=== PATIENT | female | born 1955 | race Caucasian/White ===

== ENCOUNTER 2023-09-19 07:13 | Outpatient (REF) | payer OTHER, SELFPAY ==
--- NOTE | ~2023-09-19 | XR_ITS ---
EXAMINATION: XR SHOULDER, LEFT CLINICAL INFORMATION: Pain in left shoulder. COMPARISON: None available. TECHNIQUE: Two views of the left shoulder. FINDINGS: The bones are diffusely demineralized. Moderate osteoarthritic changes in the acromioclavicular joint. There is an impacted, displaced fracture of the humeral anatomical neck/head. There is possible sclerosis along the fracture line. XR/XR shoulder LT min 2V IMPRESSION: Impacted, displaced fracture of the humeral anatomical neck/head. Possible sclerosis along the fracture line. This study was presented to me October 01, 2023 for interpretation. PSA staff will provide results to referring provider at this time.
== END 2023-09-19 07:14 | disposition home or self-care (01) ==
LOC: HO.HOSX 07:13
PROVIDERS: Visit Provider Orthopaedic Surgery
DX: M25.512 Pain in left shoulder (principal)
CPT/HCPCS: 73030

== ENCOUNTER 2023-09-19 08:40 | Outpatient (AMB) | payer OTHER, SELFPAY ==
--- NOTE | 2023-09-19 08:43 | A.OFFVIS_ITS ---
Intake Visit Reasons: Left shoulder pain Intake Note: Kelley is a 67 year old female who presents to the office today for a new patient visit for left shoulder pain and weakness. The patient states that she suffered a fracture to her left proximal humerus in April of 2023 when she fell on her left arm while coming down from the top of a bunk bed. She was treated non operatively. The patient has been doing physical therapy exercises on her own. The patient reports difficulty lifting her left hand above shoulder height. She has taken ibuprofen and Tylenol which gave her mild relief. She has failed the last 3 months of conservative treatment. She was being treated by an collateral specialist in [place]. She recently moved to [place]. Allergies No Known Allergies Allergy (Verified 09/19/23 08:51) Medication List - Last Reconciled 09/19/23 by Abhishek Ayers MD atorvastatin 40 mg PO DAILY famotidine 40 mg PO BID verapamil ER 180 mg PO BID Physical Exam Const Other: Well-nourished well-developed very friendly female awake alert and oriented x3 in no acute distress Extrem Other: Bilateral upper extremity examination shows good capillary refill, no skin lesions noted, normal sensation light touch Left shoulder examination shows decreased range of motion when compared to her right shoulder, 4+ out of 5 strength with supraspinatus testing, positive impingement signs, no crepitus with range of motion, tenderness over her acromioclavicular joint Results Reviewed Results Reviewed: X-rays of the patient's left shoulder show a partially healed humeral neck fracture with no clear evidence of avascular necrosis of the humeral head, severe acromioclavicular joint narrowing, a type 2 acromion Assessment & Plan Assessment & Plan (1) Left shoulder pain: Code(s): M25.512 - Pain in left shoulder Category: Medical Plan Ms. Wharton presents with progressively worsening left shoulder pain and weakness after suffering a left proximal humerus fracture 6 months ago. The patient's symptoms may be due to early avascular necrosis of her humeral head or possible rotator cuff tearing. Thus, I will send the patient for an MRI of her left shoulder for further evaluation. I will see her back once the MRI is completed to discuss the findings and treatment options. She will continue with her range of motion exercises in the meantime. Feel free to call me at any time should questions regarding her orthopedic management arise. I spent 20 minutes in reviewing the patient's records and imaging studies, torres shultz the patient and documenting in the medical record. Orders: Orders XR shoulder LT min 2V 09/19/23 M25.512 - Pain in left shoulder MR shoulder LT wo con 09/19/23 M25.512 - Pain in left shoulder Coding Level of Care Code New Pt Level 3 (21791) Diagnoses Left shoulder pain M25.512
== END 2023-09-19 09:19 | disposition home or self-care (01) ==
PROVIDERS: Visit Provider Orthopaedic Surgery
DX: M25.512 Pain in left shoulder (principal)
CPT/HCPCS: 99204

== ENCOUNTER 2023-11-06 08:33 | Outpatient (REF) | payer OTHER, SELFPAY ==
--- NOTE | ~2023-11-06 | MR_ITS ---
EXAMINATION: MR SHOULDER WITHOUT CONTRAST, LEFT CLINICAL INFORMATION: Shoulder pain. COMPARISON: X-ray 09/19/2023 TECHNIQUE: MRI of the shoulder without contrast was performed on a high-field scanner. FINDINGS: ROTATOR CUFF: Mild supraspinatus tendinosis. No transverse tendon tear or retraction is seen. Infraspinatus, teres minor are intact. No muscle atrophy or fatty infiltration. BICEPS: Suspected mild biceps tendinosis. CORACOACROMIAL ARCH: The undersurface of the acromion is curved with no subacromial spur. Moderate acromioclavicular arthritis. LABRUM/CAPSULE: Superior labral degeneration with fraying. Small caliber posterior labrum. GLENOHUMERAL JOINT/MARROW: As seen on the x-ray, there is an impacted displaced fracture of the humeral head/neck. There is a bony edema present in this region. Mild glenohumeral joint arthritis, with areas of chondral heterogeneity and thinning. Small joint effusion. No axillary lymphadenopathy. MR/MR shoulder LT wo con IMPRESSION: 1. Impacted, displaced humeral head/neck fracture, with bony edema. 2. Mild supraspinatus tendinosis. 3. Suspected mild biceps tendinosis. 4. Superior labral degeneration with fraying. Small caliber posterior labrum. 5. Mild glenohumeral joint arthritis. Small effusion. 6. Moderate acromioclavicular arthritis.
== END 2023-11-06 08:34 | disposition home or self-care (01) ==
LOC: HO.MRI 08:33
PROVIDERS: PCP Physician Assistant Medical; Visit Provider Orthopaedic Surgery
DX: M25.512 Pain in left shoulder (principal)
CPT/HCPCS: 73221

== ENCOUNTER 2023-12-03 07:28 | Outpatient (AMB) | payer OTHER, SELFPAY ==
--- NOTE | 2023-12-03 07:31 | A.OFFVIS_ITS ---
Intake Visit Reasons: OV- MRI review LT shoulder Intake Note: Kelley is a 67 year old right hand dominant female who presents with complaints of intermittent discomfort in her left shoulder. She notices the discomfort mostly at night. She continues with her home stretching program. She also does water aerobics for exercise. Allergies No Known Allergies Allergy (Verified 09/19/23 08:51) Medication List - Last Reconciled 12/03/23 by Abhishek Ayers MD atorvastatin 40 mg PO DAILY famotidine 40 mg PO BID verapamil ER 180 mg PO BID Physical Exam Const Other: Well-nourished well-developed very friendly female awake alert and oriented x3 in no acute distress Extrem Other: Bilateral upper extremity examination shows good capillary refill, no skin lesions noted, normal sensation light touch Left shoulder examination shows forward flexion 130 degrees, external rotation to 30 degrees, internal rotation to L4, positive impingement signs, tenderness over her acromioclavicular joint, 4+ out of 5 strength with supraspinatus testing Results Reviewed Results Reviewed: MRI of the patient's left shoulder shows bony trabecular crossing the patient's proximal humerus fracture site, a type 2 acromion, severe acromioclavicular joint degenerative changes, signal change within the supraspinatus tendon most likely due to adhesive capsulitis Assessment & Plan Assessment & Plan (1) Left shoulder pain: Code(s): M25.512 - Pain in left shoulder Category: Medical Plan Ms. Wharton presents with left shoulder pain and stiffness due to impingement syndrome, acromioclavicular joint arthritis and adhesive capsulitis. I had a lengthy discussion with the patient regarding the treatment options. The patient wishes to hold off on surgery if at all possible. She will continue with her [id number] exercises. The do's and don'ts of lifting were discussed at length with the patient. She will contact me prior to her follow- up appointment in 2 months should any questions or concerns arise. Feel free to call me at any time should questions regarding her orthopedic management arise. I spent 22 minutes in reviewing the patient's records and imaging studies, seeing the patient and documenting in the medical record. Coding Level of Care Code Est Pt Level 3 (18050) Diagnoses Left shoulder pain M25.512
== END 2023-12-03 07:57 | disposition home or self-care (01) ==
PROVIDERS: PCP Physician Assistant Medical; Visit Provider Orthopaedic Surgery
DX: M75.42 Impingement syndrome of left shoulder (principal); M19.012 Primary osteoarthritis, left shoulder
CPT/HCPCS: 99213

== ENCOUNTER → 2023-12-03 07:28 | Outpatient (BNVA) | payer OTHER, SELFPAY | PROVIDERS: PCP Physician Assistant Medical; Visit Provider Orthopaedic Surgery ==

== ENCOUNTER 2024-02-03 09:14 | Outpatient (AMB) | payer OTHER, SELFPAY ==
--- NOTE | 2024-02-03 09:22 | MHC.PC.OV ---
Vital Signs 02/03/24 09:30 Height 5 ft 4.57 in Weight 133 lb BMI 22.4 BP 118/68 Blood Pressure Location Lt brachial Position Sitting Respiration 14 Pulse 70 Pulse Source Pulse Oximeter Temp 98.1 F Temp Source Oral Pulse Oximetry (%) 99 Oxygen Delivery Method Room Air Intake Visit Reasons: GLASS [employer]ANER- Est care/meds Intake Note: New patient visit Allergies No Known Allergies Allergy (Verified 02/03/24 09:22) Tobacco use date assessed: 02/03/24 Fall risk assessment: 1 Fall in past year Last assessed Fall Risk: 02/03/24 Dental Screening Dental Screen Date: 02/03/24 HPI HPI Comments History of Present Illness Details This is a 68-year-old female with a past medical history of osteoporosis, vitamin-D deficiency, cluster headaches, hyperlipidemia and hypertension presenting to [facility]. She relocated from [facility] in 06/2023 to be closer to her 2 grandchildren. Cluster headaches-seen by neurology in the past. She was treated with a nerve block, and they have been in remission for the past year. She also takes diltiazem. Colonoscopy is due to in October 2026. She had a few polyps on her last colonoscopy in 2021. Records transfer pending. Mammogram and bone density are due. Requests orders. She is on Fosamax and takes a vitamin-D supplement for vitamin-D deficiency. She had labs done in June 2022 at her last physical. Started smoking age 14, and she smoked 1 ppd until 2012. She had 1 LDCT several years ago. She is interested in continued screenings. No cough, wheezing, shortness of breath or hemoptysis. Hyperlipidemia is treated with atorvastatin 40 mg daily. No history of heart attack or stroke. Patient followed by [facility] for chronic left shoulder pain. ROS: Constitutional: No unexplained weight loss, fever, chills, fatigue or night sweats. Respiratory: No shortness of breath, cough or sputum production. Cardiovascular: No chest pain, chest pressure or chest discomfort. No palpitations or pedal edema. Gastrointestinal: No anorexia, nausea, vomiting or diarrhea. No abdominal pain or blood in stool. Neurologic: No headache, dizziness, syncope Physical exam: Constitutional: Alert, in no distress. Neck: Supple, Full range of motion. No lymphadenopathy. No palpable thyroid masses. Respiratory: Clear to auscultation. Cardiovascular: S1 S2 regular. No murmurs. Extremities: Warm and well perfused. No clubbing, cyanosis or edema. Psychiatric: Normal mood and affect [facility] Medical History (Updated 02/03/24 @ 10:17 by MARY LOU Basilio) History of tobacco use Osteoporosis Vitamin D deficiency Hyperlipidemia Essential hypertension Cluster headaches HTN (hypertension) Family History (Updated 02/03/24 @ 09:28 by Jovanna Medina [facility]) Brother Alcoholism Mother HTN (hypertension) Father HTN (hypertension) Other Substance use Social History Housing: [facility] Patient Tobacco Use Status: Former Tobacco user Cigarette Packs Per Day: 1 Years Smoked: 40 e-Cigarette/Vaping Use: Never Used Second Hand Smoke Exposure: No service: No Current occupational status: retired Cognitive needs: No Hearing needs: Yes (hearing loss) Vision needs: Yes (glasses) Questionnaire PHQ-9 Over the last 2 weeks, how often have you been bothered by any of the following problems? 1. Little interest or pleasure in doing things: not at all 2. Feeling down, depressed, or hopeless: not at all 3. Trouble falling or staying asleep, or sleeping too much: several days 4. Feeling tired or having little energy: several days 5. Poor appetite or overeating: several days 6. Feeling bad about yourself - or that you are a failure or have let yourself or your family down: not at all 7. Trouble concentrating on things, such as reading the newspaper or watching television: not at all 8. Moving or speaking so slowly that other people could have noticed. Or the opposite - being so fidgety or restless that you have been moving around a lot more than usual: not at all 9. Thoughts that you would be better off or of hurting yourself in some way: not at all Total score: 3 Depression Screening Interpretation: Negative Depression Screening Done: Yes 22272 - PHQ-9 Billing: Yes Source: Developed by Drs. Shahram Head, Candis Fabian, Kevyn Mayer and colleagues, with an educational margy from [employer]. Thrive Questionnaire Date Thrive assessed: 02/03/24 I am a: Patient What is your living situation today?: I have a steady place to live Within the past 12 months, did the food you bought not last and you didn't have the money to get more?: Never true Within the past 12 months, did you worry whether your food would run out before you got money to buy more?: Never true Do you have trouble paying for medicines?: No Do you have trouble getting transportation to medical appointments?: No Do you have trouble paying your heating and electricity bill?: No Do you have trouble taking care of your child, family member or friend?: No Do you have trouble with day-to-day activities such as bathing, preparing meals, shopping, managing finances, etc.?: No Are you currently unemployed and looking for a job?: No Are you interested in more education?: Yes Please select the resources that you would like help with: None Currently or been in a relationship where the following occur: No concerns reported THRIVE Score: 0 AUDIT C Alcohol Use Questionnaire (AUDIT-C) 1. How often do you have a drink containing alcohol?: Monthly or less 2. How many drinks containing alcohol do you have on a typical day when you are drinking?: 1 or 2 3. How often do you have six or more drinks on one occasion?: Never Total Score: 1 DWAINE-7 AMB Questionnaire DWAINE-7 Date DWAINE - 7 assessed: 02/03/24 Feeling nervous, anxious, or on edge: 1 = Several days Not being able to stop or control worryin = Several days Worrying too much about different things: 1 = Several days Trouble relaxin = Several days Being so restless that it is hard to sit still: 1 = Several days Becoming easily annoyed or irritable: 1 = Several days Feeling afraid as if something awful might happen: 1 = Several days Total DWAINE-7 score (0-4 normal; 5-9 mild; 10-14 moderate; 15-21 severe): 7 Source: Developed by Drs. Shahram Head, Candis Fabian, Kevyn Mayer and colleagues, with an educational margy from [employer]. DWAINE-7 Assessment Billing DWAINE-7 Assessment Tool: DWAINE-7 Assessment 90467 Physical exam (Primary Care) Vital Signs: Last Vital Signs Temp 98.1 F 02/03/24 09:30 Pulse 70 02/03/24 09:30 Resp 14 02/03/24 09:30 BP 118/68 02/03/24 09:30 Pulse Ox 99 02/03/24 09:30 Oxygen Delivery Method Room Air 02/03/24 09:30 BMI result Body Mass Index 22.4 Tobacco/Smoking Status: Tobacco use Status Tobacco use date assessed 02/03/24 02/03/24 09:33 Patient Tobacco Use Status Former Tobacco user 02/03/24 09:33 e-Cigarette/Vaping Use Never Used 02/03/24 09:33 PHQ-9: PHQ-9 Score PHQ-9: Total score 3 02/03/24 10:04 Depression Screening Interpretation: Negative Thrive Assessment: Date of Thrive Assessment Date Thrive assessed 02/03/24 02/03/24 09:33 Currently or been in a relationship where the following occur: No concerns reported Coding Level of Care Code New Pt Level 4 (63738) Complex EM visit Add On G2211 Diagnoses Age-related osteoporosis without current pathological fracture M81.0 Osteoporosis type: age-related Presence of current pathological fracture: without current pathological fracture Vitamin D deficiency E55.9 Hyperlipidemia E78.5 Essential hypertension I10 Cluster headaches G44.009 History of tobacco use Z87.891 Left shoulder pain M25.512 Additional Codes DWAINE-7 Assessment Billing - DWAINE-7 Assessment Tool: DWAINE-7 Assessment 75666 ([id number]) Assessment & Plan Assessment & Plan (1) Osteoporosis: Code(s): M81.0 - Age-related osteoporosis without current pathological fracture Category: Medical Qualifiers: Osteoporosis type: age-related Presence of current pathological fracture: without current pathological fracture Qualified Code(s): M81.0 - Age-related osteoporosis without current pathological fracture Plan: Reviewed calcium and vitamin-D supplementation. Avoid smoking. Weightbearing exercise encouraged. Continue Fosamax. Bone density exam ordered. (2) Vitamin D deficiency: Code(s): E55.9 - Vitamin D deficiency, unspecified Category: Medical Plan: Continue vitamin-D supplement. Order placed to repeat for physical exam. (3) Hyperlipidemia: Code(s): E78.5 - Hyperlipidemia, unspecified Category: Medical Plan: Mediterranean diet recommended. Continue atorvastatin. Check lipid profile prior to physical exam. (4) Essential hypertension: Code(s): I10 - Essential (primary) hypertension Category: Medical Plan: Controlled. Continue current dose of diltiazem. (5) Cluster headaches: Code(s): G44.009 - Cluster headache syndrome, unspecified, not intractable Category: Medical Plan: Contact the office for recurrent symptoms. She has done well since interventions with Neurology. (6) History of tobacco use: Code(s): Z87.891 - Personal history of nicotine dependence Category: Social Hx Plan: Referred for lung cancer screening. (7) Left shoulder pain: Code(s): M25.512 - Pain in left shoulder Category: Medical Plan: Continue management per [facility]. Plan Follow up for physical exam in 06/25/2024. Orders: Orders MM screening mammo BI Today Z12.31 - Encounter for screening mammogram for malignant neoplasm of breast XR DEXA axial skeleton Today M81.0 - Age-related osteoporosis without current pathological fracture, N95.9 - Unspecified menopausal and perimenopausal disorder Lipid Panel Today E55.9 - Vitamin D deficiency, unspecified, E78.5 - Hyperlipidemia, unspecified, I10 - Essential (primary) hypertension, M81.0 - Age-related osteoporosis without current pathological fracture Comprehensive Met. Panel Today E55.9 - Vitamin D deficiency, unspecified, E78.5 - Hyperlipidemia, unspecified, I10 - Essential (primary) hypertension, M81.0 - Age-related osteoporosis without current pathological fracture TSH reflex Free T4 Today E55.9 - Vitamin D deficiency, unspecified, E78.5 - Hyperlipidemia, unspecified, I10 - Essential (primary) hypertension, M81.0 - Age-related osteoporosis without current pathological fracture Complete Blood Count no Diff Today E55.9 - Vitamin D deficiency, unspecified, E78.5 - Hyperlipidemia, unspecified, I10 - Essential (primary) hypertension, M81.0 - Age-related osteoporosis without current pathological fracture Vitamin D 1,25 dihydroxy Today E55.9 - Vitamin D deficiency, unspecified, E78.5 - Hyperlipidemia, unspecified, I10 - Essential (primary) hypertension, M81.0 - Age-related osteoporosis without current pathological fracture CT lung screening Today Z87.891 - Personal history of nicotine dependence Medications: New atorvastatin 40 mg PO DAILY 90 tabs 3RF alendronate 70 mg PO QWEEK 12 tabs 3RF famotidine 40 mg PO BID 180 tabs 3RF verapamil ER 180 mg PO BID 180 tabs 3RF Patient Instructions: Please have fasting labs done at one of the [facility] lab locations the week before your physical exam in June. You will be called to schedule the mammogram and bone density exam.
[2024-02-03 09:30] VITALS: BP 118/68; PULSE 70; RESP 14; TEMP 36.7; O2SAT 99; BMI 22.4
== END 2024-02-03 10:06 | disposition home or self-care (01) ==
PROVIDERS: PCP Physician Assistant Medical; Visit Provider Physician Assistant Medical
DX: M81.0 Age-related osteoporosis without current pathological fracture (principal); E55.9 Vitamin D deficiency, unspecified; E78.5 Hyperlipidemia, unspecified; I10 Essential (primary) hypertension; G44.009 Cluster headache syndrome, unspecified, not intractable; Z87.891 Personal history of nicotine dependence; M25.512 Pain in left shoulder

== ENCOUNTER → 2024-02-03 09:14 | Outpatient (BNVA) | payer OTHER, SELFPAY | PROVIDERS: PCP Physician Assistant Medical; Visit Provider Physician Assistant Medical | DX: M81.0 Age-related osteoporosis without current pathological fracture (principal); E55.9 Vitamin D deficiency, unspecified; E78.5 Hyperlipidemia, unspecified; I10 Essential (primary) hypertension; G44.009 Cluster headache syndrome, unspecified, not intractable; M25.512 Pain in left shoulder; Z79.899 Other long term (current) drug therapy; Z87.891 Personal history of nicotine dependence | CPT/HCPCS: 96127 ==

== ENCOUNTER 2024-02-04 07:34 | Outpatient (AMB) | payer OTHER, SELFPAY ==
--- NOTE | 2024-02-04 07:45 | A.OFFVIS_ITS ---
Vital Signs 02/04/24 07:48 Height 5 ft 5 in Weight 133 lb BMI 22.1 Intake Visit Reasons: OV- LT shoulder follow up Intake Note: Kelley is a 67 year old female who presents for follow-up of her left shoulder pain and stiffness. The patient states that she suffered a fracture to her left proximal humerus in April of 2023 when she fell on her left arm while coming down from the top of a bunk bed. She was treated non operatively. The patient has been doing physical therapy exercises on her own. The patient reports minimal discomfort in her left shoulder. She does take Tylenol or ibuprofen which gave her fairly good relief. The patient states that she has difficulty taking off her bathing suit top after swimming. Otherwise she states that her left shoulder discomfort and stiffness are tolerable to her at this time. Allergies latex Allergy (Severe, Verified 02/04/24 07:49) Itching Medication List - Last Reviewed 02/04/24 by RIGOBERTO Bush alendronate 70 mg PO QWEEK atorvastatin 40 mg PO DAILY cholecalciferol (vitamin D3) . famotidine 40 mg PO BID verapamil ER 180 mg PO BID PFSH Medical History History of tobacco use Osteoporosis Vitamin D deficiency Hyperlipidemia Essential hypertension Cluster headaches HTN (hypertension) Family History Brother Alcoholism Mother HTN (hypertension) Father HTN (hypertension) Other Substance use Social History Housing: Condominium Patient Tobacco Use Status: Former Tobacco user Cigarette Packs Per Day: 1 Years Smoked: 40 e-Cigarette/Vaping Use: Never Used Second Hand Smoke Exposure: No service: No Current occupational status: retired Cognitive needs: No Hearing needs: Yes (hearing loss) Vision needs: Yes (glasses) Physical Exam Vital Signs: BMI result Body Mass Index 22.1 Const Other: Well-nourished well-developed very friendly female awake alert and oriented x3 in no acute distress Extrem Other: Left shoulder examination shows improved range of motion when compared to her last examination with forward flexion to 150 degrees, external rotation at 30 degrees, internal rotation to level L4, no crepitus with range of motion, minimal discomfort with range of motion, no instability Results Reviewed Results Reviewed: X-rays of the patient's left shoulder show bony trabecular crossing her proximal humerus fracture site, no evidence of avascular necrosis Assessment & Plan Assessment & Plan (1) Left shoulder pain: Code(s): M25.512 - Pain in left shoulder Category: Medical Plan Kelley continues to do fairly well after suffering a left proximal humerus fra cture. I had a lengthy discussion with the patient regarding the treatment options. At this point the patient's symptoms are tolerable to her. She will continue with her home stretching program. She will follow up with me on an as- needed basis should her symptoms worsen in any way. Feel free to call me at any time should questions regarding her orthopedic management arise. I spent 21 minutes in reviewing the patient's records and imaging studies, seeing the patient and documenting in the medical record. Orders: Orders XR shoulder LT min 2V 02/04/24 M25.512 - Pain in left shoulder Coding Level of Care Code Est Pt Level 3 (04560) Complex EM visit Add On G2211 Diagnoses Left shoulder pain M25.512
[2024-02-04 07:48] VITALS: BMI 22.1
== END 2024-02-04 08:02 | disposition home or self-care (01) ==
LOC: HO.HOS 07:35
PROVIDERS: PCP Physician Assistant Medical; Visit Provider Orthopaedic Surgery
DX: S42.202D Unspecified fracture of upper end of left humerus, subsequent encounter for fracture with routine healing (principal); M25.512 Pain in left shoulder
CPT/HCPCS: 99213; G2211

== ENCOUNTER 2024-02-04 13:06 | Outpatient (REF) | payer MEDICARE, SELFPAY | END 2024-02-04 13:07 | disposition home or self-care (01) | LOC: HO.HOSX 13:06 | PROVIDERS: Visit Provider Orthopaedic Surgery | DX: M25.512 Pain in left shoulder (principal) | CPT/HCPCS: 73030 ==

== ENCOUNTER 2024-03-18 10:58 | Outpatient (REF) | payer MEDICARE, SELFPAY ==
--- NOTE | ~2024-03-18 | MM_ITS ---
EXAMINATION: BONE DENSITOMETRY CLINICAL INDICATION: Age-related osteoporosis without current pathological fracture. COMPARISON: This is the patient's baseline examination. TECHNIQUE: Using a [employer] DXA System (software version: 13.1) manufactured by [employer], dual-energy x-ray absorptiometry was performed of the lumbar spine and left hip. The images are of good technical quality. Summary results are attached. FINDINGS: AP SPINE L1-L4: BMD 0.813 g/cm2, Z-score -1.2, T-score -3.1, osteoporosis. LEFT FEMUR, NECK: BMD 0.732 g/cm2, Z-score -0.5, T-score -2.2, osteopenia. LEFT FEMUR, TOTAL: BMD 0.725 g/cm2, Z-score -0.7, T-score -2.2, osteopenia. IDENTIFIED RISK FACTORS: History of adult fracture. Menopause. HISTORY OF FRACTURE: Humerus/shoulder. MEDICATIONS: Calcium supplement and/or multivitamin. Vitamin D. Bisphosphonates. MM/XR DEXA axial skeleton IMPRESSION: 1. DIAGNOSIS: Severe osteoporosis based on the lowest T-score value of -3.1 in the lumbar spine and the prior history of fracture applying World Health Organization criteria. 2. 10-YEAR FRACTURE RISK PREDICTION, FRAX: According to the guidelines, FRAX calculation should only be performed on patients in the osteopenia bone density category. Therefore, FRAX was not performed on this patient. 3. Treatment Recommendations: NOF guidelines recommend consideration for treatment in postmenopausal women and men age 50 and older presenting with the following: -A hip or vertebral (clinical or morphometric) fracture. -T-score less than or equal to -2.5 at the femoral neck or spine after appropriate evaluation to exclude secondary causes. -Low bone mass at the hip or spine and a 10-year fracture probability by FRAX of greater than or equal to 3% for hip fracture or greater than or equal to 20% for major osteoporotic fracture based on the [place] adapted WHO algorithm. 4. Other Recommendations: All treatment decisions require clinical judgment and consideration of individual patient factors, including patient preferences, comorbidities, previous drug use, risk factors not captured in the FRAX model (e.g. frailty, falls, vitamin D deficiency, increased bone turnover, interval significant decline in bone density) and possible under or overestimation of fracture risk by FRAX. Additional medical evaluation for secondary cause of low bone mineral density may be appropriate. FUTURE SCAN RECOMMENDATION: People with diagnosed cases of osteoporosis or at high risk for fracture should have regular bone mineral density tests. For patients eligible for Medicare, routine testing is allowed once every 2 years. The testing frequency can be increased to one year for patients who have rapidly progressing disease, those who are receiving or discontinuing medical therapy to restore bone mass, or have additional risk factors. Electronically signed by: René Loera MD 03/18/2024 04:48 PM [facility]
== END 2024-03-18 10:59 | disposition home or self-care (01) ==
LOC: HO.MAMMO 10:58
PROVIDERS: PCP Physician Assistant Medical; Visit Provider Physician Assistant Medical
DX: Z12.31 Encounter for screening mammogram for malignant neoplasm of breast (principal); M81.0 Age-related osteoporosis without current pathological fracture; Z78.0 Asymptomatic menopausal state
CPT/HCPCS: 77063; 77067; 77080

== ENCOUNTER → 2024-03-18 11:15 | Outpatient (BNV) | payer MEDICARE, SELFPAY | PROVIDERS: PCP Physician Assistant Medical; Visit Provider Internal Medicine | DX: Z12.31 Encounter for screening mammogram for malignant neoplasm of breast (principal) | CPT/HCPCS: 77063; 77067 ==

== ENCOUNTER 2024-08-10 08:16 | Outpatient (AMB) | payer OTHER, SELFPAY ==
--- NOTE | 2024-07-09 13:36 | MHC.PC.OV ---
Intake Visit Reasons: annual phyiscal Allergies latex Allergy (Severe, Verified 02/04/24 07:49) Itching Tobacco use date assessed: 02/03/24 Dental Screening Dental Screen Date: 02/03/24 [facility] Medical History History of tobacco use Osteoporosis Vitamin D deficiency Hyperlipidemia Essential hypertension Cluster headaches HTN (hypertension) Family History Brother Alcoholism Mother HTN (hypertension) Father HTN (hypertension) Other Substance use Social History Housing: Condominium Patient Tobacco Use Status: Former Tobacco user Cigarette Packs Per Day: 1 Years Smoked: 40 e-Cigarette/Vaping Use: Never Used Second Hand Smoke Exposure: No service: No Current occupational status: retired Cognitive needs: No Hearing needs: Yes (hearing loss) Vision needs: Yes (glasses) Questionnaire Thrive Questionnaire Date Thrive assessed: 02/03/24 DWAINE-7 AMB Questionnaire DWAINE-7 Date DWAINE - 7 assessed: 02/03/24 Source: Developed by Drs. Shahram Head, Candis Fabian, Kevyn Mayer and colleagues, with an educational margy from [employer]. Physical exam (Primary Care) Tobacco/Smoking Status: Tobacco use Status Tobacco use date assessed 02/03/24 02/03/24 09:33 Patient Tobacco Use Status Former Tobacco user 02/03/24 09:33 e-Cigarette/Vaping Use Never Used 02/03/24 09:33 Thrive Assessment: Date of Thrive Assessment Date Thrive assessed 02/03/24 02/03/24 09:33 Coding
--- NOTE | 2024-08-10 08:22 | A.OFFPC_ITS ---
Vital Signs 08/10/24 08:27 08/10/24 08:32 Height 5 ft 5 in Weight 126 lb BMI 21.0 BP 98/52 L 98/50 L Blood Pressure Location Lt brachial Rt brachial Position Sitting Sitting Pulse 81 Pulse Source Pulse Oximeter Temp 97.4 F Temp Source Temporal Artery Scan Pulse Oximetry (%) 97 Oxygen Delivery Method Room Air Intake Visit Reasons: annual phyiscal Intake Note: Kelley presents in the office today for her annual physical. Allergies latex Allergy (Severe, Verified 08/10/24 08:24) Itching Tobacco use date assessed: 08/10/24 Fall risk assessment: No Falls in past year Last assessed Fall Risk: 08/10/24 Dental Screening Dental Screen Date: 08/10/24 Did you have a dental visit in the last 12 months?: Yes Did you have a dental problem in the last 6 months where you did not have access to dental care?: No Was dental information given to patient?: Patient has dentist HPI HPI Comments History of Present Illness Details This is a 68-year-old female with a past medical history of osteoporosis, vitamin-D deficiency, cluster headaches, hyperlipidemia and hypertension presenting for a physical exam. She relocated from [facility] in 06/2023 to be closer to her 2 grandchildren. She is still on the road a lot getting things from storage units. It has been a busy past few months. Cluster headaches-seen by neurology in the past. She was treated with a nerve block, and they have been in remission for the past year. She takes diltiazem for this. Her blood pressure is soft today, but she denies symptoms of low b lood pressure. She only had coffee this morning and nothing else to eat or drink. She has a blood pressure cuff at home, and she will recheck her blood pressure and contact the office if systolic is less than 100 or diastolic is less than 55. She reports colonoscopy is due to in October 2026. She had polyps in 2021. She had a mammogram in March 2024 which showed no evidence of malignancy. Her bone density exam was consistent with her diagnosis of osteoporosis. She is on calcium, vitamin-D and alendronate. She is due for fasting blood work, and she is reminded to have this done. Started smoking age 14, and she smoked 1 ppd until 2012. She had 1 LDCT several years ago. She is interested in continued screenings. No cough, wheezing, shortness of breath or hemoptysis. I referred her for this, but she was not contacted. She is interested in having another screening, but she defers it until the fall because she will not be consistently in this area until then. Hyperlipidemia is treated with atorvastatin 40 mg daily. No history of heart attack or stroke. Patient followed by [facility] for chronic left shoulder pain. She will follow up with her pharmacy for pneumonia vaccine, shingles vaccine and tetanus immunization. Patient reports she is up-to-date with COVID-19 and influenza vaccine. ROS: Constitutional: No unexplained weight loss, fever, chills, fatigue or night sweats. Eyes: No vision changes, blurry vision, double vision, eye pain, eye redness, eye discharge. ENT: No hearing loss, sneezing, congestion, runny nose or sore throat. Respiratory: No shortness of breath, cough or sputum production. Cardiovascular: No chest pain, chest pressure or chest discomfort. No palpitations or pedal edema. Gastrointestinal: No anorexia, nausea, vomiting or diarrhea. No abdominal pain or blood in stool. Genitourinary: No dysuria, hematuria, urinary frequency. Neurologic: No headache, dizziness, syncope, unilateral weakness, ataxia, numbness or tingling in the extremities. Musculoskeletal: No joint swelling, back pain. See HPI. Hematologic/Lymphatics: No bleeding or painful lymph nodes. She notices that she does bruise more easily if she bumps her arms on something, but she has no spontaneous bruising. She takes ibuprofen for her shoulder pain. Skin: No rash or itching. Endocrine: No cold or heat intolerance. No polyuria or polydipsia. Psychiatric: No depression or anxiety. No SI/HI. Physical exam: Constitutional: Alert, in no distress. Head: Normocephalic. Eyes: Pupils are equal, round and reactive to light. Extraocular muscles intact. Ear, Nose and Throat: Canals clear. TMs normal. Normal nasal mucosa. No nasal discharge. No oral lesions. Neck: Supple, Full range of motion. No lymphadenopathy. No palpable thyroid masses. Respiratory: Clear to auscultation. Cardiovascular: S1 S2 regular. No murmurs. No carotid bruits. Gastrointestinal: Abdomen soft, non-tender, non-distended. Normal bowel sounds. No palpable masses. Neurologic: No focal neurological deficits. Symmetric patellar reflexes. Moves all extremities spontaneously. Sensation intact bilaterally. Skin: No rashes . No visible ecchymosis. Musculoskeletal: No gross deformities. Normal range of motion. Extremities: Warm and well perfused. No clubbing, cyanosis or edema. Intact upper and lower extremity peripheral pulses bilaterally. Psychiatric: Normal mood and affect [facility] Medical History (Updated 08/10/24 @ 08:39 by MARY LOU Basilio) Routine physical examination History of tobacco use Osteoporosis Vitamin D deficiency Hyperlipidemia Essential hypertension Cluster headaches HTN (hypertension) Family History Brother Alcoholism Mother HTN (hypertension) Father HTN (hypertension) Other Substance use Social History (Updated 08/10/24 @ 08:26 by Pamela Enamorado MA) Housing: Condominium Alcohol intake: current Patient Tobacco Use Status: Former Tobacco user Cigarette Packs Per Day: 1 Years Smoked: 40 e-Cigarette/Vaping Use: Never Used Second Hand Smoke Exposure: No service: No Current occupational status: retired Cognitive needs: No Hearing needs: Yes (hearing loss) Vision needs: Yes (glasses) Questionnaire PHQ-9 Over the last 2 weeks, how often have you been bothered by any of the following problems? 1. Little interest or pleasure in doing things: not at all 2. Feeling down, depressed, or hopeless: not at all 3. Trouble falling or staying asleep, or sleeping too much: several days 4. Feeling tired or having little energy: not at all 5. Poor appetite or overeating: not at all 6. Feeling bad about yourself - or that you are a failure or have let yourself or your family down: not at all 7. Trouble concentrating on things, such as reading the newspaper or watching television: not at all 8. Moving or speaking so slowly that other people could have noticed. Or the opposite - being so fidgety or restless that you have been moving around a lot more than usual: not at all 9. Thoughts that you would be better off or of hurting yourself in some way: not at all Total score: 1 Depression Screening Interpretation: Negative Depression Screening Done: Yes 51306 - PHQ-9 Billing: Patient declined-do not bill Source: Developed by Drs. Shahram Head, Candis Fabian, Kevyn Mayer and colleagues, with an educational margy from [employer]. Thrive Questionnaire Date Thrive assessed: 08/10/24 I am a: Patient What is your living situation today?: I have a steady place to live Within the past 12 months, did the food you bought not last and you didn't have the money to get more?: Never true Within the past 12 months, did you worry whether your food would run out before you got money to buy more?: Never true Do you have trouble paying for medicines?: No Do you have trouble getting transportation to medical appointments?: No Do you have trouble paying your heating and electricity bill?: No Do you have trouble taking care of your child, family member or friend?: No Do you have trouble with day-to-day activities such as bathing, preparing meals, shopping, managing finances, etc.?: No Are you currently unemployed and looking for a job?: No Are you interested in more education?: Yes Please select the resources that you would like help with: None Currently or been in a relationship where the following occur: No concerns reported THRIVE Score: 0 AUDIT C Alcohol Use Questionnaire (AUDIT-C) 1. How often do you have a drink containing alcohol?: 2-4 times a month 2. How many drinks containing alcohol do you have on a typical day when you are drinking?: 1 or 2 3. How often do you have six or more drinks on one occasion?: Never Total Score: 2 DWAINE-7 AMB Questionnaire DWAINE-7 Date DWAINE - 7 assessed: 08/10/24 Feeling nervous, anxious, or on edge: 1 = Several days Not being able to stop or control worryin = Not at all Worrying too much about different things: 0 = Not at all Trouble relaxin = Not at all Being so restless that it is hard to sit still: 1 = Several days Becoming easily annoyed or irritable: 0 = Not at all Feeling afraid as if something awful might happen: 3 = Nearly every day Total DWAINE-7 score (0-4 normal; 5-9 mild; 10-14 moderate; 15-21 severe): 5 Source: Developed by Drs. Shahram Head, Kevyn Gunteroenke and colleagues, with an educational margy from [employer]. DWAINE-7 Assessment Billing DWAINE-7 Assessment Tool: DWAINE-7 Assessment 06538 Physical exam (Primary Care) Vital Signs: Last Vital Signs Temp 97.4 F 08/10/24 08:27 Pulse 81 08/10/24 08:27 BP 98/50 L 08/10/24 08:32 Pulse Ox 97 08/10/24 08:27 Oxygen Delivery Method Room Air 08/10/24 08:27 BMI result Body Mass Index 21.0 Tobacco/Smoking Status: Tobacco use Status Tobacco use date assessed 08/10/24 08/10/24 08:36 Patient Tobacco Use Status Former Tobacco user 08/10/24 08:26 e-Cigarette/Vaping Use Never Used 08/10/24 08:26 PHQ-9: PHQ-9 Score PHQ-9: Total score 1 08/10/24 08:39 Depression Screening Interpretation: Negative Thrive Assessment: Date of Thrive Assessment Date Thrive assessed 08/10/24 08/10/24 08:36 Currently or been in a relationship where the following occur: No concerns reported Coding Level of Care Code Est Pt Prev Care >65y(02241) Diagnoses Routine physical examination Z00.00 Additional Codes DWAINE-7 Assessment Billing - DWAINE-7 Assessment Tool: DWAINE-7 Assessment 58078 ([id number]) Assessment & Plan Assessment & Plan (1) Routine physical examination: Code(s): Z00.00 - Encounter for general adult medical examination without abnormal findings Category: Medical Plan: Patient is seen today for a routine physical. As part of this visit we reviewed the following issues, which are considered and essential part of preventative health in this age group: - Breast Cancer screening - Annual Front Desk Lead exam - Screening for colon cancer - Blood pressure screening - Cholesterol screening - Osteoporosis prevention including calcium/vitamin D intake, weight bearing exercise & smoking cessation - Nutritional and exercise counseling - Counseling of injury prevention including fire prevention, smoke alarms and seat belt usage - Screening for depression - Education about skin cancer - Recommendations about immunizations - Recommendation of an eye exam - Screening for substance abuse Referred anew for a low-dose CAT scan. Plan Follow up in 1 year for annual physical exam. Orders: Referrals Pulmonology Referral Z87.891 - Personal history of nicotine dependence
[2024-08-10 08:27] VITALS: BP 98/52; PULSE 81; TEMP 36.3; O2SAT 97; BMI 21.0
[2024-08-10 08:32] VITALS: BP 98/50
--- OUTSIDE RECORDS SUMMARY | 2024-08-10 08:32 | XMS_ITS ---
Author Organization [facility] Billing Info Address [address] [place] [address] Care Team Providers Care Coffee Urn Attendant Name Role Phone PAYANGABY Unavailable [phone] Allergies No Known Allergies REASON FOR VISIT EST F/U visit Lt. Fx Shoulder/Arm Medications Medication SIG (Take, Route, Frequency, Duration) Notes Start Date End Date Status Verapamil HCl ER 180 MG 1 tablet Orally Once a day 2 tablets daily Active Famotidine 40 MG 1 tablet at bedtime Orally Once a day 2 tablets daily Active Atorvastatin Calcium 40 MG 1 tablet Orally Once a day 1 daily Active Alendronate-Cholecalci ferol 70-2800 MG-UNIT 1 tablet 30 minutes before the first food, beverage or medicine of the day with plain water Orally 1 week Active Social History Tobacco Use: Social History Observation Description Date Details (start date - stop date) Current some da y smoker NA - NA Tobacco Status: Question Answer Notes Patient is a current some day smoker Problems No Known Problems Vital Signs Height 65 in 06/04/2023 Weight 133 lbs 06/04/2023 BMI 22.13 kg/m2 06/04/2023 Blood pressure systolic 114 mm Hg 06/04/19 24 Blood pressure diastolic 76 mm Hg 024 Temperature 97.1 degrees Fahrenheit 06/04/19 24 Heart Rate 66 /min 06/04/2023 Encounters Encounter Location Date Provider Diagnosis [id number] [address] [place], [place] [id number] 06/04/2023 GABY PAYAN Pain, joint, shoulder, left M25.512 and Other closed nondisplaced fracture of proximal end of left humerus, initial encounter S42.295A Assessments Encounter Date Diagnosis (ICD Code) Assessment Notes Treatment Notes Treatment Clinical Notes Section Notes 06/04/2023 Pain, joint, shoulder, left (ICD-10 - M25.512) 06/04/2023 Other closed nondisplaced fracture of proximal end of left humerus, initial encounter (ICD-10 - S42.295A) 06/04/2023 Other Patient is a 67-year-old female presenting for follow up of left shoulder pain. Patient is doing well, and feels that she is improving. She still cannot fully raise her arm. X-ray revealed formation of new bone. We encouraged the patient to move forward with physical therapy. We showed the patient some exercises she could do, and approved the use of a nany to work her shoulder. We assured the patient she is healing. Patient will follow up in 1 month for repeat X-rays. Plan Of Treatment Treatment Notes Assessment Notes Other Patient is a 67-year -old female presenting for follow up of left shoulder pain. Patient is doing well, and feels that she is improving. She still cannot fully raise her arm. X-ray revealed formation of new bone. We encouraged the patient to move forward with physical therapy. We showed the patient some exercises she could do, and approved the use of a nany to work her shoulder. We assured the patient she is healing. Patient will follow up in 1 month for repeat X-rays. Pending Test Test Name Order Date XRAY-SHOULDER, LEFT; COMPLETE, 2 + VIEWS ([id number]) 06/04/2023 Procedure Notes * Category Sub-Category Detail Notes Scribe Documentation written by: By emi martinez my name below, I, Darrian Cortez, attest that this documentation has been prepared under the direction and in the presence of Dr. Gaby Payan. Electronically Signed: Henrry Escamilla.I, Dr. Gaby Payan. Personally performed the services described in this documentation. All medical records entries made by the scribe were at my directions and in my presence. I have reviewed the chart, discharge instructions, and agree that the record reflects my personal performance and is accurate and complete. Dr. Gaby Payan Progress Notes * Kelley WHARTON LDOB:[birth year] (67 yo F)Acc No.[id number]:06/04/2023 PROGRESS NOTE Patient:?Kelley WHARTON Provider:?GABY PAYAN, :1955???Age:67 Y???Sex:Female D ate:06/04/2023 ?CHN#:[id number] Address:[address] [place], [place] [id number] Subjective: * Chief Complaints: * ???EST F/U visit Lt. Fx Shou lder/Arm * HPI: ???Shoulder:?Patient ?is here for initial evaluation of L shoulder pain, Dx humeral Fx.?Symptoms have been present for?since 04/28/2023.?Initial presentation of symptoms?was a result of trauma when she fell.?Today the patient is complaining of?pain.?They describe symptoms as?moderate, constant, aching pain.?On a pain scale of 0-10, ?the pain score is?5 ?Associated treatments?seeing other physician ([facility] ER), ice, rest.?Previous screening shows?XR at ER reveals humeral Fx.?Aggravating Factors?any movement.?Prior surgeries?none.?06/04/23: Patient is a 67-year-old female presenting for follow up of left shoulder pain.?Patient is doing well, and feels that she is improving. She still cannot fully raise her arm. * ROS:?CARDIOVASCULAR: - heart attack, - chest pain, - congestive heart failure, - passing out, -palpitations, - heart valve disease, - murmur, - blood clots RESPIRATORY: - emphysema, - asthma, - shortness of breath NEUROLOGIC: - head injury, - concussion, - loss of consciousness, - stroke, - seizures, -numbness, - weakness PSYCHIATRIC: - anxiety,- depression, GASTROINTESTINAL: - indigestion, - gastroesophageal reflux, - ulcers ENDOCRINE: - thyroid problems, - diabetes CONSTITUTIONAL: - weight gain, - weight loss HEMATOLOGY: - bleeding problems, - anemia GENITOURINARY: - prostate disease, - kidney disease, -sexual dysfunction MUSCULOSKELETAL: + L shoulder pain. * Medical History:?? * Surgical History:?Toe 08/2022 * Hospitalization/Major Diagno stic Procedure:?Denies Past Hospitalization * Family History:?Mother: dece ased, diagnosed with HTN.?Father: , heart disease, diagnosed with HTN.? * Social History:?Alcohol Use?Patient?uses alcohol ?Drinks per occasion:?1 ?Drinks per week:?7 ???Tobacco Status?Patient is?a current some day smoker * Medications:?TakingAlendrona te-Cholecalciferol 70-2800 MG-UNIT Tablet 1 tablet 30 minutes before the first food, beverage or medicine of the day with plain water Orally , Notes to Pharmacist: 1 weekAtorvastatin Calcium 40 MG Tablet 1 tablet Orally Once a day , Notes to Pharmacist: 1 dailyFamotidine 40 MG Tablet 1 tablet at bedtime Orally Once a day , Notes to Pharmacist: 2 tablets dailyVerapamil HCl ER 180 MG Tablet Extended Release 1 tablet Orally Once a day , Notes to Pharmacist: 2 tablets dailyMedication List reviewed and reconciled with the patientTaking Alendronate-Cholecalciferol 70-2800 MG-UNIT Tablet 1 tablet 30 minutes before the first food, beverage or medicine of the day with plain water Orally , Notes to Pharmacist: 1 weekTaking Atorvastatin Calcium 40 MG Tablet 1 tablet Orally Once a day , Notes to Pharmacist: 1 dailyTaking Famotidine 40 MG Tablet 1 tablet at bedtime Orally Once a day , Notes to Pharmacist: 2 tablets dailyTaking Verapamil HCl ER 180 MG Tablet Extended Release 1 tablet Orally Once a day , Notes to Pharmacist: 2 tablets dailyMedication List reviewed and reconciled with the patient * Allergies:?N.K.A.no[Allergie s Verified] Objective: * Vitals:?Ht: 65 in, Ht-cm: 16 5.1 cm, Wt: 133 lbs, Wt-k.33 kg, BMI:22.13, Weight Change: -0.2 lbs, Body Surface Area: 1.66, BP:114/76, Temp:97.1F, HR:66. * Examination: ???GENERAL EXAMINATION: ?Constitutional:?no acute distress.?.?Lymphatics:?No lymphadenopathy.?.?Head:?unremarkable.?.?Eyes:?conjunctiva pink withclear sclerae.?.?Ears/Nose/Throat:?normal, no deformitiesor lesions.?.?Neck:?supple, no masses,trachea midline.?.?Lungs:?full symmetric chestexcursion.?.?Heart:?no cyanosis, clubbing,edema or varicosities.?.?Musculoskeletal:?L shoulder: unable/unnecessary to examine.?Neurological:?motor and sensoryfunction is grossly intact..?Psych:?insight andjudgment intact..? Assessment: * Assessment: 1.?Pain, joint, shoulder, le ft - M25.512 (Primary)?2.?Other closed nondisplaced fracture of proximal end of left humerus, initial encounter - S42.182A? Plan: * Treatment: 2.?Other closed nondisplaced fracture of proximal end of left humerus, initial encounter?Imaging: XRAY-SHOULDER, LEFT; COMPLETE, 2 + VIEWS ([id number]) IH* 3.?Others? Notes: Patient is a 67-year-old female presenting for follow up of left shoulder pain. Patient is doing well, and feels that she is improving. She still cannot fully raise her arm. X-ray revealed formation of new bone. We encouraged the patient to move forward with physical therapy. We showed the patient some exercises she could do, and approved the use of a nany to work her shoulder. We assured the patient she is healing. Patient will follow up in 1 month for repeat X-rays. ?? * Procedures:?Scribe:?Documentation written by:?By signing my name below, I, Darrian Dana, attest that this documentation has been prepared under the direction and in the presence of Dr. Gaby Payan. Electronically Signed: Henrry Escamilla. ?I, Dr. Gaby Payan. Personally performed the services described in this documentation. All medical records entries made by the scribe were at my directions and in my presence. I have reviewed the chart, discharge instructions, and agree that the record reflects my personal performance and is accurate and complete. Dr. Gaby Payan.? 4 view X-ray of the left shoulder was taken in-house on 06/04/23. This revealed evidence of new bone formation. ? * Procedure Codes:?73015 X-RAY EXAM OF SHOULDER * Care Plan Details* * IN INSPECTOR Sign off status: Completed true * Provider:?GABY PAYAN DO Date:? 06/04/2023 Generated for Lupe villatoro/Rica/Jonsmitting on:?08/10/2024 07:32 AM CDT History and Physical Notes * HPI (History of Present Illness) Category Sub-Category Detail Notes Category Not es Shoulder Patient is here for init ial evaluation of L shoulder pain, Dx humeral Fx 06/04/23: Patient is a 67-year-old female presenting for follow up of left shoulder pain. Patient is doing well, and feels that she is improving. She still cannot fully raise her arm. Symptoms have been present for since Initial presentation of symptoms was a r esult of trauma when she fell Today the patient is complaining of pain They describe symptoms as moderate, cons tant, aching pain On a pain scale of 0-10, the pain score is: 5 Associated treatments seeing other physi ramon ([facility] ER), ice, rest Previous screening shows XR at ER reveal s humeral Fx Aggravating Factors any movement Prior surgeries none Examination Category Sub-Category Detail Notes Category Not es GENERAL EXAMINATION Constitutional: no acute distress. Lymphatics: No lymphadenopathy. Head: unremarkable. Eyes: conjunctiva pink with clear sclerae. Ears/Nose/Throat: normal, no deformities or lesions. Neck: supple, no masses, trachea midline. Lungs: full symmetric chest excursion. Heart: no cyanosis, clubbing, edema or varicosities. Musculoskeletal: L shoulder: unable/u nnecessary to examine Neurological: motor and sensory function is grossly intact. Psych: insight and judgment intact.
--- OUTSIDE RECORDS SUMMARY | 2024-08-10 08:32 | XMS_ITS | Patient Health Record ---
Author Organization [facility] Billing Info Address [address] [place] [id number] Support Name Relationship Address Phone Miriam Johnson Emergency Contact [address] [place] [address] Unavailable Kelley Wharton Guarantor Unknown Allergies No Known Allergies Reason For Referral No Information Medications Medication SIG (Take, Route, Frequency, Duration) [...] some day smoker Problems No Known Problems Plan Of Treatment Pending Test Test Name Order Date XRAY-SHOULDER, LEFT; COMPLETE, 2 + VIEWS ([id number]) 05/13/2023 XRAY-SHOULDER, LEFT; COMPLETE, 2 + VIEWS ([id number]) 06/04/2023 Insurance Providers Payer Name Payer Address Payer Phone Subscriber Number Group Number Insured Name Patient Relationship to Insured Coverage Start Date Coverage End Date [employer] MED[employer]ARE PRIME [address] [place] [id number] Kelley Beckwith Self - patient is the insured Medical (General) History Medical History History 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
--- OUTSIDE RECORDS SUMMARY | 2024-08-10 08:32 | XMS_ITS ---
Author Organization [facility] Billing Info Address [address] [place] [address] Care Team Providers Care Director Of Intelligence Name Role Phone GABY PAYAN Unavailable [phone] Allergies No Known Allergies Reason For Referral Reason eval/tx conservativl ey impacted left shoulder humerus fx results [facility] Diagnosis 1 Pain, joint, shoulde r, left (M25.512) Referral Organization [id number] [facility] Referring Provider First Name GABY Referring Provider Last Name SCHUYLER Referring Provider Speciality Orthopedic Surgery Referred Provider [id number], Facility Referral Priority Routine REASON FOR VISIT New Patient: L humerus Fx Medications Medication SIG (Take, Route, Frequency, Duration) Notes Start Date End Date Status Atorvastatin Calcium 40 MG 1 tablet Orally Once a day 1 daily Active Alendronate-Cholecalci ferol 70-2800 MG-UNIT 1 tablet 30 minutes before the first food, beverage or medicine of the day with plain water Orally 1 week Active Verapamil HCl ER 180 MG 1 tablet Orally Once a day 2 tablets daily Active Famotidine 40 MG 1 tablet at bedtime Orally Once a day 2 tablets daily Active Social History Tobacco Use: Social History Observation Description Date Details (start date - stop date) Current some da y smoker NA - NA Tobacco Status: Question Answer Notes Patient is a current some day smoker Problems No Known Problems Vital Signs Height 65 in 05/13/2023 Weight 133.2 lbs 05/13/2023 BMI 22.16 kg/m2 05/13/2023 Blood pressure systolic 113 mm Hg 05/13/19 24 Blood pressure diastolic 74 mm Hg 024 Temperature 97.3 degrees Fahrenheit 05/13/19 24 Heart Rate 69 /min 05/13/2023 Respiratory Rate 16 /min 05/13/2023 Encounters Encounter Location Date Provider Diagnosis [id number] [address] [place], [place] [id number] 05/13/2023 GABY PAYAN Pain, joint, shoulder, left M25.512 and Other closed nondisplaced fracture of proximal end of left humerus, initial encounter S42.295A Assessments Encounter Date Diagnosis (ICD Code) Assessment Notes Treatment Notes Treatment Clinical Notes Section Notes 05/13/2023 Pain, joint, shoulder, left (ICD-10 - M25.512) 05/13/2023 Other closed nondisplaced fracture of proximal end of left humerus, initial encounter (ICD-10 - S42.295A) 05/13/2023 Other The patient presents today for initial evaluation of L shoulder pain, previously Dx humerus Fx, sustained 04/28/2023 as a result of a fall. She went to the ER where she was diagnosed with a proximal humeral Fx with XR. Today she describes the pain as moderate, constant, worsened by any movement and improved with NSAIDs, ice, and rest. XR of the L shoulder was taken and evaluated in-house and revealed an impacted Fx of the L proximal humerus. We disagree with previous radiologist Dx of communited Fx. We informed the patient that we could treat this problem without Sx. We taught her some exercises for improving ROM and told her we would eventually start her on PT in 2 weeks. We sent in the PT script at [facility] for L shoulder impacted humerus Fx eval and treat Cx. She will F/U in 4 weeks for another round of XRs. Plan Of Treatment Treatment Notes Assessment Notes Other The patient presents today for initial evaluation of L shoulder pain, previously Dx humerus Fx, sustained 04/28/2023 as a result of a fall. She went to the ER where she was diagnosed with a proximal humeral Fx with XR. Today she describes the pain as moderate, constant, worsened by any movement and improved with NSAIDs, ice, and rest. XR of the L shoulder was taken and evaluated in-house and revealed an impacted Fx of the L proximal humerus. We disagree with previous radiologist Dx of communited Fx. We informed the patient that we could treat this problem without Sx. We taught her some exercises for improving ROM and told her we would eventually start her on PT in 2 weeks. We sent in the PT script at [facility] for L shoulder impacted humerus Fx eval and treat Cx. She will F/U in 4 weeks for another round of XRs. Pending Test Test Name Order Date XRAY-SHOULDER, LEFT; COMPLETE, 2 + VIEWS ([id number]) IH 05/13/2023 Referrals Referral Date Details 05/13/2023 05/13/2023, eval/tx conservativley impacted left shoulder humerus fx results [facility], Facility [id number] [facility] Procedure Notes * Category Sub-Category Detail Notes X-Ray Location 4V XR of the Eileen ferrer was taken at [facility]. Impressions:1. Communited fracture of the proximal left humerusNo other acute osseous abnormality Scribe Documentation written by: By emi martinez my name below, I, Javan Cole, attest that this documentation has been prepared under the direction and in the presence of Dr. Gaby Payan. Electronically Signed: Javan Cole Scribe.I, Dr. Gaby Payan. Personally performed the services described in this documentation. All medical records entries made by the scribe were at my directions and in my presence. I have reviewed the chart, discharge instructions, and agree that the record reflects my personal performance and is accurate and complete. Dr. Gaby Payan Progress Notes * Jennifer WHARTONla LDOB:[birth year] (67 yo F)Acc No.[id number]:05/13/2023 PROGRESS NOTE Patient:?Kelley WHARTON Provider:?GABY PAYAN, DO :1955???Age:67 Y???Sex:Female D ate:05/13/2023 ?N#:[id number] Address:[address], [id number] Subjective: * Chief Complaints: * ???New Patient: L humerus Fx * HPI: ???Shoulder:?Patient ?is here for initial evaluation of L shoulder pain, Dx humeral Fx.?Symptoms have been present for?since 04/28/2023.?Initial presentation of symptoms?was a result of trauma when she fell.?Today the patient is complaining of?pain.?They describe symptoms as?moderate, constant, aching pain.?On a pain scale of 0-10, ?the pain score is?5 ?Associated treatments?seeing other physician ([facility] ER), ice, rest.?Previous screening shows?XR at ER reveals humeral Fx.?Aggravating Factors?any movement.?Prior surgeries?none.?First Point of Contact Screening:?Do any of the following apply to you?New rash or open sores?No ?Fever and/or chills in the past 7 days?No ?Cough?No ?Muscle or body aches (other than from an injury)?No ?Sore throat?No ?In the past 3 weeks, have you or a close contact traveled outside the [place] and you are now ill??No ?OFFICE USE (If universal masking is not in place, provide patients age 2 years and older with a facemask to wear over their mouth and nose while in the practice.):?Patient answered no to all questions OR only answered yes to question 1 * ROS:?CARDIOVASCULAR: - heart attack, - chest [...] Surgical History:?Toe 08/2022 * Hospitalization/Major Diagno stic Procedure:?No Hospitalization History. * Family History:?Mother: dece ased, diagnosed with [...] 65 in, Ht-cm: 16 5.1 cm, Wt: 133.2 lbs, Wt-k.42 kg, BMI:22.16, Body Surface Area: 1.66, BP:113/74, Temp:97.3F, HR:69, Respiratory Rate:16. * Examination: ???GENERAL EXAMINATION: ?Constitutional:?no acute distress.?.?Lymphatics:?No lymphadenopathy.?.?Head:?unremarkable.?.?Eyes:?conjunctiva pink withclear sclerae.?.?Ears/Nose/Throat:?normal, no deformitiesor lesions.?.?Neck:?supple, no masses,trachea midline.?.?Lungs:?full symmetric chestexcursion.?.?Heart:?no cyanosis, clubbing,edema or varicosities.?.?Musculoskeletal:?L shoulder: unable/unnecessary to examine.?Neurological:?motor and sensoryfunction is grossly intact..?Psych:?insight andjudgment intact..? Assessment: * Assessment: 1.?Pain, joint, shoulder, le ft - M25.512 (Primary)?2.?Other closed nondisplaced fracture of proximal end of left humerus, initial encounter - S42.295A? Plan: * Treatment: ? [facility] To[id number] ?Reason:eval/tx conservativley impacted left shoulder humerus fx [facility] 2.?Others? Notes: The patient presents today for initial evaluation of L shoulder pain, previously Dx humerus Fx, sustained 04/28/2023 as a result of a fall. She went to the ER where she was diagnosed with a proximal humeral Fx with XR. Today she describes the pain as moderate, constant, worsened by any movement and improved with NSAIDs, ice, and rest. XR of the L shoulder was taken and evaluated in- house and revealed an impacted Fx of the L proximal humerus. We disagree with previous radiologist Dx of communited Fx. We informed the patient that we could treat this problem without Sx. We taught her someexercises for improving ROM and told her we would eventually start her on PT in 2 weeks. We sent inthe PT script at [facility] for L shoulder impacted humerus Fx eval and treat Cx. She will F/Uin 4 weeks for another round of XRs. ?? * Procedures:?Scribe:?Documentation written by:?By signing my name below, I, Javan Cole, attest that this documentation has been prepared under the direction and in the presence of Dr. Gaby Payan. Electronically Signed: Javan Sales.I, Dr. Gaby Payan. Personally performed the services described in this documentation. All medical records entries made by the scribe were at my directions and in my presence. I have reviewed the chart, discharge instructions, and agree that the record reflects my personal performance and is accurate and complete. Dr. Gaby Payan?.?X-Ray:?Location?4V XR of the L shoulder was taken at [facility].?Impressions: ?1. Communited fracture of the proximal left humerus ?No other acute osseous abnormality.?--- 4V XR of the L shoulder was taken and evaluated in-house. XR reveals an impacted comminuted fracture of the L proximal humerus. ? * Procedure Codes:?11794 X-RAY EXAM OF [id number] * Preventive Medicine:? ??Quality Measures:?Fall Risk Assessment:?Date of Screening Completed:?05/13/2023 ?Increased Fall Risk Factors:?History of falls in past 3 months ?History Falls in Past Year:?One fall with injury in past year * Care Plan Details* * GER OF FINANCIAL PLANNING Sign off status: Completed true * Provider:?GABY PAYAN DO Date:? 05/13/2023 Generated for Lupe villatoro/Rica/Akhil on:?08/10/2024 07:31 AM CDT History and Physical Notes * HPI (History of Present Illness) Category Sub-Category Detail Notes Category Not es Shoulder Patient is here for init ial evaluation of L shoulder pain, Dx humeral Fx Symptoms have been present for since Initial presentation of symptoms was a r esult of trauma when she fell Today the patient is complaining of pain They describe symptoms as moderate, cons tant, aching pain On a pain scale of 0-10, the pain score is: 5 Associated treatments seeing other physi ramon ([facility] ER), ice, rest Previous screening shows XR at ER reveal s humeral Fx Aggravating Factors any movement Prior surgeries none First Point of Contact Screening Do any of the following apply to you? New rash or open sores: No Fever and/or chills in the past 7 days: No Cough: No Muscle or body aches (other than from an injury): No Sore throat: No In the past 3 weeks, have yo u or a close contact traveled outside the [place] and you are now ill? : No OFFICE USE (If [facility] is not in place, provide patients age 2 years and older with a facemask to wear over their mouth and nose while in the practice.):: Patient answered no to all questions OR only answered yes to question 1 Examination Category Sub-Category Detail Notes Category Not [...] grossly intact. Psych: insight and judgment intact. Consultation Request Notes Referral Date Referring Provider Referred Provider Not es 05/13/2023 GABY PAYAN [id number], Facility eval/tx conservativley impacted left shoulder humerus fx results em
== END 2024-08-10 09:02 | disposition home or self-care (01) ==
LOC: HO.HMCFM 08:17
PROVIDERS: PCP Physician Assistant Medical; Visit Provider Physician Assistant Medical
DX: Z00.00 Encounter for general adult medical examination without abnormal findings (principal)

== ENCOUNTER → 2024-08-10 08:16 | Outpatient (BNVA) | payer OTHER, SELFPAY | PROVIDERS: PCP Physician Assistant Medical; Visit Provider Physician Assistant Medical | DX: Z00.00 Encounter for general adult medical examination without abnormal findings (principal); M81.0 Age-related osteoporosis without current pathological fracture; E78.5 Hyperlipidemia, unspecified; I10 Essential (primary) hypertension; Z87.891 Personal history of nicotine dependence | CPT/HCPCS: 96127 ==

== ENCOUNTER 2024-08-11 07:17 | Outpatient (REF) | payer MEDICARE, SELFPAY ==
[2024-08-11 08:41] LABS: Hematocrit 39.1 % (37.0-47.0); Mean Corpuscular HGB Conc 33.2 g/dl (31.0-35.0); Mean Corpuscular Hemoglobin 29.7 pg (27.0-33.0); Mean Corpuscular Volume 89.5 fL (80.0-98.0); Mean Platelet Volume 9.7 fL (9.4-12.3); Platelet Count 269 X10*3/uL (160-400); Red Blood Count 4.37 X10*6/uL (4.20-5.50); White Blood Count 6.2 X10*3/uL (4.8-10.8)
[2024-08-11 09:16] LABS: Alanine Aminotransferase 22 U/L (0-31); Alkaline Phosphatase 55 U/L (39-117); Anion Gap 11 (12-20); Aspartate Amino Transferase 22 U/L (5-31); Bilirubin Total 0.5 mg/dL (0.0-1.0); Blood Urea Nitrogen 15 mg/dL (9-16); Carbon Dioxide 26 mmol/L (22-29); Chloride 107 mmol/L (96-108); Cholesterol 150 mg/dL (<200); Estimated Glomerular Filt Rate > 60; Glucose Random 85 mg/dL (60-115); Potassium 3.9 mmol/L (3.3-5.1); Sodium 140 mmol/L (135-145); Total Protein 6.5 g/dL (6.5-8.0); Triglycerides 92 mg/dL (<150)
[2024-08-11 10:01] LABS: HDL Cholesterol 65 mg/dL (>40); LDL Cholesterol Calculated 67 mg/dL (<100); TSH reflex Free T4 0.85 uIU/mL (0.32-4.0)
[2024-08-15 17:34] LABS: VITAMIN D (1,25 OH) D3 23 pg/mL; Vit D (1,25-Dihydroxy) Total 23 pg/mL (18-72); Vitamin D (1,25 OH) D2 <8 pg/mL
== END 2024-08-11 07:18 | disposition home or self-care (01) ==
LOC: HO.LAB 07:17
PROVIDERS: PCP Physician Assistant Medical; Visit Provider Physician Assistant Medical
DX: E78.5 Hyperlipidemia, unspecified (principal); I10 Essential (primary) hypertension; M81.0 Age-related osteoporosis without current pathological fracture; E55.9 Vitamin D deficiency, unspecified
CPT/HCPCS: 36415; 80053; 80061; 82652; 84443; 85027

== ENCOUNTER 2025-02-19 10:16 | Outpatient (AMB) | payer MEDICARE, SELFPAY ==
--- NOTE | 2025-02-19 08:01 | A.OFFVIS_ITS ---
Intake Visit Reasons: Former Smoker Allergies latex Allergy (Severe, Verified 08/10/24 08:24) Itching HPI HPI Former Smoker: Details: Initial visit for this 69yo former smoker with a 40PYH. Patient started smoking at age 14 for 43 years at 1ppd. She quit 2013. Still has the occasional/rare cigarette. . Uses marijuana a few times a month. Denies second hand smoke exposure. Denies exposure to chemicals or substances like asbestos. . Denies known family history of lung cancer. Denies personal history of cancers. Denies chest CT in last year. . Denies recent travel outside the [place]. Denies recent respiratory illness or recent hospitalization for respiratory issues. History of testing positive for COVID. Admits receiving COVID Vaccine. . Denies fever, chills, new/worsening cough, hemoptysis, hoarseness or dysphagia. Denies significant chest pain, significant dyspnea or unintentional weight loss. Patient Lung Cancer Screening Questionnaire reviewed with patient by provider. . Shared Decision Making Completed. Patient meets criteria. Discussed in detail with patient, the risk vs benefit of LDCT screening. Patient consents to proceed with scan. Discussed and encouraged continued smoking cessation. [facility] Medical History (Updated 12/24/24 @ 12:32 by Khalida May PA-C) Personal history of nicotine dependence Osteoporosis Vitamin D deficiency Hyperlipidemia Essential hypertension Cluster headaches Family History Brother Alcoholism Mother HTN (hypertension) Father HTN (hypertension) Other Substance use Social History (Updated 02/19/25 @ 10:34 by Khalida May PA-C) Housing: Condominium Alcohol intake: current Patient Tobacco Use Status: Former Tobacco user Years Smoked: (onset 14yo, 1ppd x 43yrs, 40pyh - quit 2012) e-Cigarette/Vaping Use: Never Used Second Hand Smoke Exposure: No service: No Current occupational status: retired Cognitive needs: No Hearing needs: Yes (hearing loss) Vision needs: Yes (glasses) Assessment & Plan Assessment & Plan (1) Personal history of nicotine dependence: Comment: (onset 14yo, 1ppd x 43yrs, 40pyh - quit 2012) Code(s): Z87.891 - Personal history of nicotine dependence Category: Medical Plan: - SDM visit completed today in office. - Patient meets criteria for LDCT for lung cancer screening purposes and is asymptomatic. - Smoking cessation counseling offered. Patients can always call [phone]. - Will arrange for a LDCT scan of the chest for screening purposes at [facility]. - Risks, benefits, and alternatives were discussed in detail and the patient agrees to proceed. - Risks discussed include but are not limited to: radiation exposure, anxiety during testing and while awaiting results, false negatives, false positives and possibility of additional intervention such as further imaging or surgical procedures for benign disease. - Benefits are obviously detection of lung cancer at an early stage which can lead to improved outcomes. - Discussed the importance of screening program compliance with adherence to yearly LDCT scan as scheduled - or sooner interval scans for personalized scr eening regimen. - Discussed follow up plan. Our office will send a letter discussing results and if needed set up phone call and office visit based on CT findings. - Patient educated on results categorization and the management decisions for suspicious findings potentially found on the screening LDCT scan. Any patient with a Lung RADS score of 3 or 4 will be reviewed by a multidisciplinary team at [facility] to form a plan of action in regards to scan findings. - If further work up is warranted for a suspicious lung finding this will be followed by the Lung Cancer Screening program in conjunction with the Thoracic Surgery Department at [facility]. - A copy of the office note and LDCT will be sent to the patient's PCP - as well as documentation on any associated further plans of care. - Incidental findings on LDCT are the PCP's responsibility. These findings are indicated with an S finding on the LDCT Assessment. A note discussing the findings will be sent to the PCP who is then responsible for further management. - All questions answered.? Coding Level of Care Code Lung Cancer Screening G0296 Diagnoses Personal history of nicotine dependence Z87.891
--- OUTSIDE RECORDS SUMMARY | 2025-02-19 13:02 | XMS_ITS | Patient Health Record ---
Author Organization [facility] Physician Tray back Billing Info Address [address] [place] [id number] Support Name Relationship Address Phone Miriam Johnson Emergency Contact [address] [place] [address] Unavailable Kelley Wharton Guarantor Unknown [phone] Allergies No Known Allergies Reason For Referral [...] Date XRAY-SHOULDER, LEFT; COMPLETE, 2 + VIEWS ([id number]) 05/13/2023 XRAY-SHOULDER, LEFT; COMPLETE, 2 + VIEWS ([id number]) 06/04/2023 Insurance Providers Payer Name Payer Address Payer Phone Subscriber Number Group Number Insured Name Patient Relationship to Insured Coverage Start Date Coverage End Date [employer] MED[employer] PRIME [address] [place] [id number] Kelley Beckwith Self - patient is the insured Medical (General) History Medical History History 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
== END 2025-02-19 13:09 | disposition home or self-care (01) ==
LOC: HO.HPS 10:17
PROVIDERS: PCP Physician Assistant Medical; Referring Provider Physician Assistant Medical; Visit Provider Physician Assistant Medical
DX: Z87.891 Personal history of nicotine dependence (principal)
CPT/HCPCS: G0296

== ENCOUNTER 2025-02-19 10:33 | Outpatient (REF) | payer MEDICARE, SELFPAY ==
--- NOTE | ~2025-02-19 | CT_ITS ---
EXAMINATION: CT LUNG SCREENING HISTORY: Z87.891 - Personal history of nicotine dependence TECHNIQUE: Low dose axial images were obtained from the sternal notch to upper abdomen without IV contrast per standard departmental protocol. Sagittal and coronal reformatted images were also obtained and reviewed. One or more of the following techniques was used for dose reduction: Automated exposure control, adjustment of the mA and/or kV according to patient size, use of iterative reconstruction technique. DLP: 38 mGy-cm COMPARISON: There are no prior studies available for comparison. FINDINGS: Lung nodules: Mild biapical pleural and parenchymal scarring. 2 mm lingular nodule axial image 93 series 6. No other pulmonary nodules. Central airways are clear. Emphysema: mild Coronary Calcification: mild Aortic Arch Calcification: mild Potentially Significant Incidentals : none Additional Chest Findings: Normal heart size. Very small pericardial effusion. Normal caliber thoracic aorta. No pleural effusion or pneumothorax. No enlarged mediastinal, hilar, axillary or internal mammary adenopathy. Bilateral breast calcifications, right greater than left. No chest wall mass. Visualized upper abdomen: The visualized portions of the liver, spleen, and adrenals have an unremarkable unenhanced appearance. Mild degenerative changes of the spine and scoliosis. CT/CT lung screening IMPRESSION: Biapical pleural and parenchymal scarring and mild emphysema. 2 mm lingular pulmonary nodule. LUNG-RADS ASSESSMENT: Lung-RADS 2: Benign MANAGEMENT: Continue annual screening with LDCT in 12 months Category S: N/A Electronically signed by: Linda Huertas MD 02/19/2025 11:49 AM [facility] [place]
== END 2025-02-19 10:34 | disposition home or self-care (01) ==
LOC: HO.CT 10:33
PROVIDERS: PCP Physician Assistant Medical; Visit Provider Physician Assistant Medical
DX: Z12.2 Encounter for screening for malignant neoplasm of respiratory organs (principal); Z87.891 Personal history of nicotine dependence
CPT/HCPCS: 71271; G0296

== ENCOUNTER → 2025-02-19 10:35 | Outpatient (BNV) | payer MEDICARE, SELFPAY | PROVIDERS: PCP Physician Assistant Medical; Visit Provider Radiology Diagnostic Radiology | DX: Z87.891 Personal history of nicotine dependence (principal) | CPT/HCPCS: 71271 ==